=== PATIENT | male | born 1995 | race Caucasian/White ===

== ENCOUNTER → 2017-03-01 | Outpatient (CLI) | payer OTHER | LOC: RAD 14:29 | DX: S99.922A Unspecified injury of left foot, initial encounter (principal); M25.572 Pain in left ankle and joints of left foot; Y99.0 Civilian activity done for income or pay; M25.475 Effusion, left foot | CPT/HCPCS: 73610; 73630 ==

== ENCOUNTER → 2017-03-09 | Outpatient (CLI) | payer OTHER | LOC: KOH-I 11:48 | DX: M84.475A Pathological fracture, left foot, initial encounter for fracture (principal) | CPT/HCPCS: 73700 ==